=== PATIENT | male | born 1955 | race Caucasian/White ===

== ENCOUNTER 2017-02-01 20:55 | Observation (INO) | payer OTHER ==
[~2017-02-01] VITALS: Ht 175.3 cm; Wt 73.5 kg
[~2017-02-01 20:55] MED LIST: AMBIEN10 MG PO; ASPIRIN EC81 MG PO; BRILINTA90 MG PO; CLARITIN 10MG T10 MG PO; CRESTOR5 MG PO; FLEXERIL 10 MG10 MG PO; FLOMAX 0.4 MG0.4 MG PO; GLUCOPHAGE1000 MG PO; HUMALOG100 UNIT/1 SQ; ISOSORBIDE MONO30 MG PO; KLONOPIN TAB 00.5 MG PO; LEVEMIR100 UNIT/1 SQ; LISINOPRIL2.5 MG PO; LOPRESSOR 50 MG50 MG PO; NITROSTAT 0.4100 TAB SL; NORVASC5 MG PO; PLAVIX 75 MG TA75 MG PO; VITAMIN D50000 UNIT PO; ZANTAC 150 MG150 MG PO
[2017-02-01 21:28] LABS: HEMOGLOBIN 15.8 gm/dl (14.0-17.5); RED BLOOD COUNT 4.67 M/UL (4.20-5.50); WHITE BLOOD COUNT 6.1 K/UL (4.5-11.0)
[2017-02-01 21:48] LABS: BUN/CREATININE RATIO 20 (0-10)
[2017-02-02 04:43] LABS: BUN/CREATININE RATIO 16 (0-10)
[2017-02-02] MEDS ORDERED: HYDROCODON-ACE1 EAC4 PO (20:26)
[2017-06-01] MEDS ORDERED: PROTONIX40 MG PO (10:32)
== END 2017-02-02 21:05 | disposition home or self-care (01) ==
LOC: ER1 20:55 → M/S 23:09 → ZEROF 23:09 → M/S 02-02 01:35
PROVIDERS: Student in an Organized Health Care Education/Training Program; ADMIT Internal Medicine
DX: R07.9 Chest pain, unspecified (principal); I10 Essential (primary) hypertension; E78.5 Hyperlipidemia, unspecified; E11.9 Type 2 diabetes mellitus without complications; F41.9 Anxiety disorder, unspecified; I25.10 Atherosclerotic heart disease of native coronary artery without angina pectoris; K21.9 Gastro-esophageal reflux disease without esophagitis; Z95.5 Presence of coronary angioplasty implant and graft; Z79.891 Long term (current) use of opiate analgesic; Z79.82 Long term (current) use of aspirin; Z79.899 Other long term (current) drug therapy; Z95.1 Presence of aortocoronary bypass graft; Z90.89 Acquired absence of other organs; Z85.038 Personal history of other malignant neoplasm of large intestine; Z87.891 Personal history of nicotine dependence
CPT/HCPCS: 36415; 71010; 80048; 80053; 81001; 82550; 82553; 82962; 83874; 83880; 84484; 85025; 85379; 85610; 85730; 93005; 96360; 96372; 99285; C1769; G0378; J1644; J1650; J1815; J2250; J2270; J3010; J7030; Q9963